=== PATIENT | male | born 1940 | race Caucasian/White ===

== ENCOUNTER → 2017-06-27 | Outpatient (CLI) | payer MEDICARE, OTHER ==
[~2017-06-27] MED LIST: ADULT LOW DOSE81 MG PO; ALLOPURINOL 30300 M1 PO; ALPRAZOLAM 0.50.5 MG PO; ANUSOL-HC30 GM RC; ASPIR-LOW 81 MG81 MG PO; ASPIRIN EC81 M1 PO; ATORVASTATIN CA40 MG PO; AUGMENTIN 875875 M1 PO; BENADRYL25 MG PO; BROMOCRIPTINE2.5 M1 PO; CARISOPRODOL 3350 MG PO; COUMADIN7.5 MG PO; FUROSEMIDE 40 M40 M1 PO; IMDUR 60 MG TAB60 M1 PO; KEFLEX500 MG PO; KLOR-CON 10 ER10 MEQ PO; LISINOPRIL10 MG PO; LISINOPRIL20 MG PO; LOPRESSOR; LOPRESSOR 50 MG50 M1 PO; LOPRESSOR100 MG PO; METFORMIN HCL500 MG PO; MEVACOR40 MG PO; NIASPAN ER 101000 M1 PO; NORCO 5-325 TA1 EACH PO; PAIN & FEVER325 MG PO; PERCOCET 5-3251 EACH PO; PLAVIX 75 MG TA75 MG PO; POTASSIUM20; PREDNISONE 10 M10 MG PO; SENNA PO; SOTALOL 120 MG120 M1 PO; TOPROL XL 100M100 M1 PO; ZOFRAN4 MG PO; [UNRECOGNIZED DRUG - OTHER]; [UNRECOGNIZED DRUG - OTHER] PO
[2017-06-27 13:23] LABS: INR 1.3; PROTIME 12.5 Seconds (9.20-11.50)
== END ==
LOC: M.LAB 02:33
PROVIDERS: Anesthesiology
DX: Z01.818 Encounter for other preprocedural examination (principal); I48.92 Unspecified atrial flutter; I48.91 Unspecified atrial fibrillation; N17.9 Acute kidney failure, unspecified; G47.33 Obstructive sleep apnea (adult) (pediatric); E66.09 Other obesity due to excess calories; I10 Essential (primary) hypertension; E11.9 Type 2 diabetes mellitus without complications; I25.10 Atherosclerotic heart disease of native coronary artery without angina pectoris; Z95.1 Presence of aortocoronary bypass graft; Z87.891 Personal history of nicotine dependence; Z90.89 Acquired absence of other organs

== ENCOUNTER 2018-07-13 08:06 | Emergency (ER) | payer MEDICARE, OTHER ==
[~2018-07-13] VITALS: Ht 180.3 cm; Wt 115.7 kg
[2018-07-13] MEDS ORDERED: LASIX 20 MG TAB20 MG PO (08:16)
[2018-07-13] MEDS ORDERED: PERCOCET 5-3251 EACH PO (08:31)
[2018-07-13] MEDS ORDERED: PREDNISONE 20 M20 M1 PO (08:31)
[2018-07-13 08:41] VITALS: BP 113/61
== END 2018-07-13 08:43 | disposition home or self-care (01) ==
LOC: M.ERS 08:06
DX: M10.071 Idiopathic gout, right ankle and foot (principal); I25.10 Atherosclerotic heart disease of native coronary artery without angina pectoris; E78.5 Hyperlipidemia, unspecified; I10 Essential (primary) hypertension; G47.30 Sleep apnea, unspecified; Z88.5 Allergy status to narcotic agent; Z90.49 Acquired absence of other specified parts of digestive tract; Z95.1 Presence of aortocoronary bypass graft

== ENCOUNTER → 2019-02-14 | Outpatient (CLI) | payer MEDICARE, OTHER ==
[~2019-02-14] MED LIST changes: +AMBIEN 5 MG TABL5 M1 PO; +FLOMAX0.4 MG PO; +HYDROCODON-ACE1 EAC7 PO; +LASIX 20 MG TAB20 MG PO; +LIPITOR40 MG PO; +LOPRESSOR50 PO; +NITROGLYCERIN0.4 MG SUBLING; +PREDNISONE 20 M20 M1 PO
[2019-02-14 07:49] LABS: CALCIUM 9.4 mg/dL (8.5-10.1); CREATININE 1.4 mg/dL (0.6-1.3); POTASSIUM 3.7 mmol/L (3.5-5.1)
--- NOTE | 2019-02-14 10:24 | 2DMMODE ---
[place] [address] 2 D/M-MODE ECHOCARDIOGRAM Name: ZACARIASJanMARIANA Room: [facility]#: [id number] Admission: 02/14/19 Attend Phys: Alicja García Discharge: Date of : 38 Date of Service: 02/14/19 [facility] Report #: [id number] THIS REPORT FOR: //name// APPROVED REPORT Study performed: 02/14/2019 07:43:56 EXAM: Comprehensive 2D, Doppler, and color-flow Echocardiogram Patient Location: Out-Patient BSA: 2.33 HR: 88 bpm BP: 120/62 mmHg Other Information Study Quality: Fair Indications Atrial Fibrillation CAD 2D Dimensions IVSd: 16.13 (7-11mm) LVOT Diam: 22.21 (18-24mm) LVDd: 53.60 mm PWd: 11.14 (7-11mm) Ascending Ao: 35.22 (22-36mm) LVDs: 40.77 (25-40mm) Aortic Root: 31.66 mm Volumes Left Atrial Volume (Systole) LA ESV Index: 32.70 mL/m2 Aortic Valve AoV Peak Jason.: 0.86 m/s AO Peak Gr.: 2.93 mmHg LVOT Max P.37 mmHg AO Mean Gr.: 2.01 mmHg LVOT Mean P.73 mmHg LVOT Max V: 0.58 m/s AO V2 VTI: 17.50 cm LVOT Mean V: 0.40 m/s DARRYL (VTI): 2.61 cm2 LVOT V1 VTI: 11.79 cm Mitral Valve MV Decel. Time: 169.90 ms MV E Max Jason.: 0.99 m/s MV PHT: 49.27 ms MVA (PHT): 4.47 [place] [address] 2 D/M-MODE ECHOCARDIOGRAM Name: MARIANA ZAVALA Room: [facility]#: [id number] Admission: 02/14/19 Attend Phys: Alicja García Discharge: Date of : 38 Date of Service: 02/14/19 [facility] Report #: [id number] TDI E/Lateral E': 7.62 E/Medial E': 11.00 Medial E' Jason.: 0.09 m/s Lateral E' Jason.: 0.13 m/s Pulmonary Valve PV Peak Jason.: 0.68 m/s PV Peak Gr.: 1.87 mmHg Tricuspid Valve RAP Estimate: 5.00 mmHg TR Peak Gr.: 17.81 mmHg RVSP: 22.81 mmHg PA Pressure: 22.81 mmHg Left Ventricle The left ventricle is normal size. There is distal septal and anteroapical hypo-akinesis. There is normal left ventricular wall thickness. Left ventricular systolic function is mildly decreased. LVEF is 45%. The left ventricular diastolic function is normal. Right Ventricle The right ventricle is normal size. The right ventricular systolic function is normal. Pacemaker lead is present in the right ventricle. Atria Left atrium is mildly dilated. Pacemaker lead is present in the right atrium. Aortic Valve The aortic valve is normal in structure. No aortic regurgitation is present. There is no aortic valvular stenosis. Mitral Valve The mitral valve is normal in structure. Mild mitral regurgitation. No evidence of mitral valve stenosis. Tricuspid Valve The tricuspid valve is normal in structure. Mild tricuspid regurgitation. Pulmonic Valve The pulmonary valve is normal in structure. Mild pulmonic regurgitation[place] [address] 2 D/M-MODE ECHOCARDIOGRAM Name: SALLYMARIANA Geena Room: [facility] Valentino#: [id number] Admission: 02/14/19 Attend Phys: Alicja García Discharge: Date of : 38 Date of Service: 02/14/19 [facility] Report #: [id number] The aortic root is normal in size. IVC is normal in size and collapses >50% with inspiration. Pericardium There is no pericardial effusion. <Conclusion> The left ventricle is normal size. There is normal left ventricular wall thickness. Left ventricular systolic function is mildly decreased. LVEF is 45%. The right ventricle is normal size. Left atrium is mildly dilated. The aortic valve is normal in structure. The mitral valve is normal in structure. Mild mitral regurgitation. The tricuspid valve is normal in structure. Mild tricuspid regurgitation. IVC is normal in size and collapses >50% with inspiration. There is no pericardial effusion. There is distal septal and anteroapical hypo-akinesis. <ELECTRONICALLY SIGNED> By: Mariana Alicea MD, FACC 02/14/19 1024 1024 1024 Mariana Alicea MD, FACC /INF
== END ==
LOC: M.CRD 07:07
PROVIDERS: Registered Nurse
DX: I08.8 Other rheumatic multiple valve diseases (principal); I25.10 Atherosclerotic heart disease of native coronary artery without angina pectoris; I48.2 Chronic atrial fibrillation; Z95.0 Presence of cardiac pacemaker

== ENCOUNTER 2019-02-24 08:49 | Emergency (ER) | payer MEDICARE, OTHER ==
[~2019-02-24] VITALS: Ht 162.6 cm; Wt 120.2 kg
[2019-02-24] MEDS ORDERED: PREDNISONE 20 M20 M1 PO (09:09)
[2019-02-24] MEDS ORDERED: NORCO 5-325 TA1 EAC1 PO (09:09)
[2019-02-24 09:10] VITALS: BP 101/63
== END 2019-02-24 09:10 | disposition home or self-care (01) ==
LOC: M.ERS 08:49
DX: M10.9 Gout, unspecified (principal); I10 Essential (primary) hypertension; E78.5 Hyperlipidemia, unspecified; I48.91 Unspecified atrial fibrillation; G47.30 Sleep apnea, unspecified; I25.10 Atherosclerotic heart disease of native coronary artery without angina pectoris; Z95.1 Presence of aortocoronary bypass graft; Z90.49 Acquired absence of other specified parts of digestive tract; Z98.41 Cataract extraction status, right eye; Z98.42 Cataract extraction status, left eye; Z95.0 Presence of cardiac pacemaker; Z88.5 Allergy status to narcotic agent

== ENCOUNTER → 2020-12-08 | Outpatient (CLI) | payer MEDICARE, OTHER ==
[~2020-12-08] MED LIST changes: +NORCO 5-325 TA1 EAC1 PO
--- NOTE | 2020-12-08 11:12 | 2DMMODE ---
[place] [address] 2 D/M-MODE ECHOCARDIOGRAM Name: MARIANA ZAVALA Room: [facility]#: [id number] Admission: 12/08/20 Attend Phys: Clive Adams, Discharge: Date of : 38 Date of Service: 12/08/20 1112 Report #: [id number] THIS REPORT FOR: cc: Clive Jones MD, Michael L. MD Holkins, John M. MD [facility] ~ APPROVED REPORT Study performed: 12/08/2020 08:31:38 EXAM: Comprehensive 2D, Doppler, and color-flow Echocardiogram Patient Location: Out-Patient BSA: 2.39 HR: 87 bpm BP: 123/60 mmHg Other Information Study Quality: Fair Indications Congestive Heart Failure Atrial Fibrillation CAD Echo Enhancing Agent Indication: Endocardial border delineation Agent(s) / Amount(s) Used: Optison 10 cc 2D Dimensions IVSd: 13.76 (7-11mm) LVOT Diam: 20.77 (18-24mm) LVDd: 52.38 mm PWd: 12.03 (7-11mm) Ascending Ao: 33.63 (22-36mm) LVDs: 32.25 (25-40mm) Aortic Root: 35.96 mm Volumes Left Atrial Volume (Systole) LA ESV Index: 35.20 mL/m2 Aortic Valve AoV Peak Jason.: 0.92 m/s AO Peak Gr.: 3.36 mmHg LVOT Max P.07 mmHg AO Mean Gr.: 1.97 mmHg LVOT Mean P.58 [place] [address] 2 D/M-MODE ECHOCARDIOGRAM Name: MARIANA AZVALA Geena Room: [facility]#: [id number] Admission: 12/08/20 Attend Phys: Clive Adams, Discharge: Date of : 38 Date of Service: 12/08/20 1112 Report #: [id number] LVOT Max V: 0.52 m/s AO V2 VTI: 21.26 cm LVOT Mean V: 0.35 m/s DARRYL (VTI): 1.90 cm2 LVOT V1 VTI: 11.94 cm Mitral Valve MV Decel. Time: 174.04 ms MV E Max Jason.: 0.94 m/s MV PHT: 50.47 ms MVA (PHT): 4.36 cm2 TDI E/Lateral E': 10.44 E/Medial E': 13.43 Medial E' Jason.: 0.07 m/s Lateral E' Jason.: 0.09 m/s Pulmonary Valve PV Peak Jason.: 0.63 m/s PV Peak Gr.: 1.57 mmHg Tricuspid Valve RAP Estimate: 5.00 mmHg TR Peak Gr.: 23.35 mmHg RVSP: 28.35 mmHg PA Pressure: 28.35 mmHg Left Ventricle The left ventricle is normal size. Apical hypokinesis is noted. There is normal left ventricular wall thickness. Left ventricular systolic function is mildly decreased. LVEF is 45-50%. Right Ventricle The right ventricle is normal size. The right ventricular systolic function is normal. Pacemaker lead is present in the right ventricle. Atria The left atrium size is normal. Pacemaker lead is present in the right atrium. Aortic Valve Mild aortic valve sclerosis. No aortic regurgitation is present. There is no aortic valvular stenosis. Mitral Valve The mitral valve is normal in structure. Mild mitral regurgitation. No evidence of mitral valve stenosis. Tricuspid Valve The tricuspid valve is normal in structure[place] [address] 2 D/M-MODE ECHOCARDIOGRAM Name: MARIANA ZAVALA Room: [facility]#: [id number] Admission: 12/08/20 Attend Phys: Clive Adams, Discharge: Date of : 38 Date of Service: 12/08/20 1112 Report #: [id number] regurgitation. Pulmonic Valve The pulmonary valve is normal in structure. Mild pulmonic regurgitation. Great Vessels The aortic root is normal in size. IVC is normal in size and collapses >50% with inspiration. Pericardium There is no pericardial effusion. <Conclusion> The left ventricle is normal size. There is normal left ventricular wall thickness. Left ventricular systolic function is mildly decreased. LVEF is 45-50%. The right ventricle is normal size. The left atrium size is normal. Mild aortic valve sclerosis. No aortic regurgitation is present. There is no aortic valvular stenosis. The mitral valve is normal in structure. Mild mitral regurgitation. The tricuspid valve is normal in structure. Mild tricuspid regurgitation. IVC is normal in size and collapses >50% with inspiration. There is no pericardial effusion. Apical hypokinesis is noted. <ELECTRONICALLY SIGNED> By: Mariana Alicea MD, FACC 12/08/20 111 11 11 Mariana Alicea MD, FACC /INF
== END ==
LOC: M.CRD 08:22
PROVIDERS: ATTEND Internal Medicine Cardiovascular Disease
DX: I08.1 Rheumatic disorders of both mitral and tricuspid valves (principal); I08.8 Other rheumatic multiple valve diseases; I48.21 Permanent atrial fibrillation; I25.10 Atherosclerotic heart disease of native coronary artery without angina pectoris; I50.32 Chronic diastolic (congestive) heart failure; R55 Syncope and collapse

== ENCOUNTER 2021-04-24 12:55 | Emergency (ER) | payer MEDICARE, OTHER ==
[~2021-04-24] VITALS: Ht 177.8 cm; Wt 133.8 kg
[2021-04-24] MEDS ORDERED: POTASSIUM CHLO10 MEQ PO (13:15)
[2021-04-24] MEDS ORDERED: FUROSEMIDE 20 M20 MG PO (13:15)
[2021-04-24] MEDS ORDERED: JANTOVEN1 MG PO (13:16)
[2021-04-24] MEDS ORDERED: JANTOVEN2 MG PO (13:16)
[2021-04-24] MEDS ORDERED: FLOMAX0.4 MG PO (13:17)
[2021-04-24] MEDS ORDERED: PACERONE200 MG PO (13:17)
[2021-04-24] MEDS ORDERED: CHILDREN'S ASPI81 M1 PO (13:17)
[2021-04-24] MEDS ORDERED: TRAZODONE HCL50 MG PO (13:17)
[2021-04-24] MEDS ORDERED: PROBENECID500 MG PO (13:18)
[2021-04-24] MEDS ORDERED: LEVOTHYROXINE75 MC1 PO (13:18)
[2021-04-24] MEDS ORDERED: METFORMIN HCL500 MG PO (13:18)
[2021-04-24] MEDS ORDERED: LIPITOR40 MG PO (13:19)
[2021-04-24] MEDS ORDERED: LISINOPRIL2.5 MG PO (13:19)
[2021-04-24] MEDS ORDERED: VITAMIN D250 MC1 PO (13:19)
[2021-04-24] MEDS ORDERED: DOXYCYCLINE 10100 M2 PO (15:33)
[2021-04-24 16:00] VITALS: BP 132/91
== END 2021-04-24 16:02 | disposition home or self-care (01) ==
LOC: M.ERS 12:55
DX: L02.211 Cutaneous abscess of abdominal wall (principal); Z88.5 Allergy status to narcotic agent

== ENCOUNTER → 2021-05-11 | Outpatient (CLI) | payer MEDICARE, OTHER ==
[~2021-05-11] MED LIST changes: +CHILDREN'S ASPI81 M1 PO; +DOXYCYCLINE 10100 M2 PO; +FUROSEMIDE 20 M20 MG PO; +JANTOVEN1 MG PO; +JANTOVEN2 MG PO; +LEVOTHYROXINE75 MC1 PO; +LISINOPRIL2.5 MG PO; +PACERONE200 MG PO; +POTASSIUM CHLO10 MEQ PO; +PROBENECID500 MG PO; +TRAZODONE HCL50 MG PO; +VITAMIN D250 MC1 PO
== END ==
LOC: M.WC 09:00
PROVIDERS: ATTEND Internal Medicine
DX: L02.211 Cutaneous abscess of abdominal wall (principal); S31.103A Unspecified open wound of abdominal wall, right lower quadrant without penetration into peritoneal cavity, initial encounter; E78.5 Hyperlipidemia, unspecified; E66.01 Morbid (severe) obesity due to excess calories; G47.30 Sleep apnea, unspecified; I48.91 Unspecified atrial fibrillation; I25.10 Atherosclerotic heart disease of native coronary artery without angina pectoris; I11.0 Hypertensive heart disease with heart failure; I50.9 Heart failure, unspecified; M10.9 Gout, unspecified; Z87.891 Personal history of nicotine dependence; Z98.41 Cataract extraction status, right eye; Z98.42 Cataract extraction status, left eye; Z90.49 Acquired absence of other specified parts of digestive tract; Z95.1 Presence of aortocoronary bypass graft; Z95.0 Presence of cardiac pacemaker; Z79.84 Long term (current) use of oral hypoglycemic drugs; X58.XXXA Exposure to other specified factors, initial encounter; Y93.89 Activity, other specified; Y92.89 Other specified places as the place of occurrence of the external cause; Y99.8 Other external cause status

== ENCOUNTER → 2021-05-14 | Outpatient (CLI) | payer MEDICARE, OTHER ==
[2021-05-14 08:31] LABS: INR 3.6; PROTIME 35.1 Seconds (9.20-11.50)
== END ==
LOC: M.LAB 08:08
PROVIDERS: ATTEND Internal Medicine Cardiovascular Disease
DX: I48.21 Permanent atrial fibrillation (principal)

== ENCOUNTER → 2021-05-18 | Outpatient (CLI) | payer MEDICARE, OTHER ==
[2021-05-18 08:57] LABS: PROTIME 19.9 Seconds (9.20-11.50)
== END ==
LOC: M.LAB 08:12 → M.WC 09:00
PROVIDERS: ATTEND Surgery
DX: L02.211 Cutaneous abscess of abdominal wall (principal); S31.103D Unspecified open wound of abdominal wall, right lower quadrant without penetration into peritoneal cavity, subsequent encounter; I48.91 Unspecified atrial fibrillation; I25.10 Atherosclerotic heart disease of native coronary artery without angina pectoris; M10.9 Gout, unspecified; I11.0 Hypertensive heart disease with heart failure; I50.9 Heart failure, unspecified; E78.5 Hyperlipidemia, unspecified; G47.30 Sleep apnea, unspecified; E66.01 Morbid (severe) obesity due to excess calories; Z68.41 Body mass index [BMI] 40.0-44.9, adult; Z87.891 Personal history of nicotine dependence; Z95.1 Presence of aortocoronary bypass graft; Z79.01 Long term (current) use of anticoagulants; Z79.899 Other long term (current) drug therapy; Z98.41 Cataract extraction status, right eye; Z98.42 Cataract extraction status, left eye; Z90.49 Acquired absence of other specified parts of digestive tract; X58.XXXD Exposure to other specified factors, subsequent encounter

== ENCOUNTER → 2021-05-25 | Outpatient (CLI) | payer MEDICARE, OTHER | LOC: M.WC 10:00 | PROVIDERS: ATTEND Surgery | DX: T81.89XD Other complications of procedures, not elsewhere classified, subsequent encounter (principal); S31.103D Unspecified open wound of abdominal wall, right lower quadrant without penetration into peritoneal cavity, subsequent encounter; I48.91 Unspecified atrial fibrillation; I25.10 Atherosclerotic heart disease of native coronary artery without angina pectoris; I11.0 Hypertensive heart disease with heart failure; I50.9 Heart failure, unspecified; M10.9 Gout, unspecified; E78.5 Hyperlipidemia, unspecified; E66.01 Morbid (severe) obesity due to excess calories; G47.30 Sleep apnea, unspecified; Z68.41 Body mass index [BMI] 40.0-44.9, adult; Z87.891 Personal history of nicotine dependence; Z79.84 Long term (current) use of oral hypoglycemic drugs; Z79.01 Long term (current) use of anticoagulants; Z79.899 Other long term (current) drug therapy; Z98.41 Cataract extraction status, right eye; Z98.42 Cataract extraction status, left eye; Z90.49 Acquired absence of other specified parts of digestive tract; Z95.1 Presence of aortocoronary bypass graft; Y83.8 Other surgical procedures as the cause of abnormal reaction of the patient, or of later complication, without mention of misadventure at the time of the procedure; X58.XXXD Exposure to other specified factors, subsequent encounter ==

== ENCOUNTER 2021-05-28 23:46 | Emergency (ER) | payer MEDICARE, OTHER ==
[~2021-05-28] VITALS: Ht 180.3 cm; Wt 129.3 kg
[2021-05-29 00:53] VITALS: BP 129/76
--- NOTE | 2021-05-29 11:20 | EKG ---
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: : 1940 Requested By: Rhoda Hernández Order Number: [id number] MD: Migel Starr Measurements Intervals [place] Rate: 61 P: 0 VA: 175 QRS: -22 QRSD: 209 T: 133 QT: 498 QTc: 502 Interpretive Statements Ventricular-paced complexes No further analysis attempted due to paced rhythm Baseline wander in lead(s) V6 Compared to ECG 01/21/2019 11:13:34 No significant changes Electronically Signed On 05-29-2021 11:20:00 LEGAL EXECUTIVE by Migel Starr [email or web address] <ELECTRONICALLY SIGNED> By: Migel Starr MD, FACC 05/29/21 1120 2358 [id number] Migel Starr MD, [facility] /EPI
== END 2021-05-29 00:54 | disposition home or self-care (01) ==
LOC: M.ERS 23:46
DX: I10 Essential (primary) hypertension (principal); E78.5 Hyperlipidemia, unspecified; Z90.49 Acquired absence of other specified parts of digestive tract; Z79.82 Long term (current) use of aspirin; Z79.899 Other long term (current) drug therapy; Z88.5 Allergy status to narcotic agent